=== PATIENT | male | born 1950 | race Caucasian/White ===

== ENCOUNTER 2019-03-11 13:33 | Emergency (ER) | payer OTHER ==
[2019-03-11 13:50] VITALS: BP 110/65
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
== END 2019-03-11 14:47 | disposition home or self-care (01) ==
DX: F10.920 Alcohol use, unspecified with intoxication, uncomplicated (principal); V49.3XXA Car occupant (driver) (passenger) injured in unspecified nontraffic accident, initial encounter; Y92.014 Private driveway to single-family (private) house as the place of occurrence of the external cause